=== PATIENT | female | born 1995 | race Caucasian/White ===

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

== ENCOUNTER 2017-09-12 21:19 | Emergency (ER) | payer OTHER ==
[~2017-09-12] VITALS: Ht 157.5 cm; Wt 76.0 kg
[~2017-09-12 21:19] MED LIST changes: +MEDROL DOSEPAK4 MG PO; +ROBITUSSIN AC,T10 ML PO; +VENTOLIN HFA18 GM IH
[2017-09-12 23:25] VITALS: BP 119/74
== END 2017-09-12 23:26 | disposition home or self-care (01) ==
LOC: EME 21:19
DX: M54.2 Cervicalgia (principal); M25.512 Pain in left shoulder
CPT/HCPCS: 72040; 99281; 99284